=== PATIENT | female | born 1980 | race Two or more races ===

== ENCOUNTER 2019-09-12 08:51 | Outpatient (CLI) | payer OTHER ==
[~2019-09-12 08:51] MED LIST: ANASPAZ0.125 MG; BACTRIM DS TABL1 TAB PO; FAMOTIDINE20 MG; INTESTINEX680 MG PO; METRONIDAZOLE500 MG; PROTONIX40 MG PO
== END 2019-09-12 09:20 | disposition home or self-care (01) ==
LOC: MAMO-SONO 08:51
DX: N60.09 Solitary cyst of unspecified breast (principal)

== ENCOUNTER 2021-10-22 13:02 | Emergency (ER) | payer OTHER ==
[~2021-10-22] VITALS: Ht 154.9 cm; Wt 68.9 kg
[2021-10-22] MEDS ORDERED: MEDROLPACK PO (16:46)
[2021-10-22] MEDS ORDERED: VALACYCLOVIR1000 MG PO (16:46)
== END 2021-10-22 17:03 ==
LOC: ER 13:02
DX: G51.0 Bell's palsy (principal)

== ENCOUNTER 2025-07-17 19:07 | Emergency (ER) | payer OTHER ==
[~2025-07-17] VITALS: Ht 154.9 cm; Wt 68.9 kg
[~2025-07-17 19:07] MED LIST changes: +MEDROLPACK PO; +VALACYCLOVIR1000 MG PO
[2025-07-18 00:34] LABS: BASO % 0.9 % (0.1-1.2); EOS # 0.40 (0.04-0.54); EOS % 3.8 % (0.7-7.0); LYMPH # 1.97 (1.18-3.74); LYMPH % 18.7 % (19.3-53.1); MEAN PLATELET VOLUME 10.10 fl (9.4-12.4); MONO # 0.73 (0.24-0.82); MONO % 6.9 % (4.7-12.5); NEUT # 7.29 (1.56-6.13); NEUT % 69.2 % (34.0-71.1); RED CELL DISTRIBUTION WIDTH 13.1 % (11.6-14.4)
[2025-07-18 01:07] LABS: ALT/SGPT 21.0 U/L (12-78); AST/SGOT 15.0 U/L (15-37); BILIRUBIN TOTAL 0.21 mg/dL (0.3-1.2); BUN CREA RATIO 23.0 (7.0-25.0); CREATININE SERUM 0.79 mg/dL (0.55-1.02); GFR 78.35; GLOBULINA 3.5 G/DL (2.4-3.5); GLUCOSE FASTING 91.0 mg/dL (65-100); OSMOLALITY SERUM 283.0 MOSM/KG (275-295)
[2025-07-18 01:17] LABS: URINE APPEARANCE Clear; URINE BACTERIA 4115.8 uL (0.0-1933); URINE BILIRRUBIN Negative (NEGATIVE); URINE BLOOD Negative; URINE COLOR Yellow; URINE EPITHELIAL CELLS 47.9 uL (0.0-38.8); URINE GLUCOSE Negative (NEGATIVE); URINE KETONE Trace (NEGATIVE); URINE LEUKOCYTE Negative; URINE NITRATE Negative; URINE PROTEIN Negative (NEGATIVE); URINE RBC 17.0 uL (0.0-20.8); URINE UROBILINOGEN 0.2 E.U./dl; URINE WBC 19.2 uL (0.0-23.2)
[2025-07-18 01:24] LABS: URINE CAST 0.73 uL (0.0-1.40)
[2025-07-18] MEDS ORDERED: BACTRIM DS TAB1 EACH PO (05:55)
[2025-07-18] MEDS ORDERED: NORFLEX100MG PO (05:55)
[2025-07-18] MEDS ORDERED: PEPCID AC20 MG PO (05:55)
== END 2025-07-18 07:28 | disposition home or self-care (01) ==
LOC: ER 19:08
PROVIDERS: Behavior Technician
DX: R10.31 Right lower quadrant pain (principal); N83.201 Unspecified ovarian cyst, right side; D25.9 Leiomyoma of uterus, unspecified